=== PATIENT | male | born 1950 | race African-American/Black ===

== ENCOUNTER 2020-04-13 11:09 | Emergency (ER) | payer OTHER ==
[~2020-04-13] VITALS: Ht 175.3 cm; Wt 90.9 kg
[2020-04-13 11:23] VITALS: BP 178/114
--- NOTE | 2020-04-13 11:35 | ED.ADGEN ---
Past Medical History Past Medical History: Alcoholism, Hypertension, Seizure Past Surgical History: No Surgical History Past Surgical History None Smoking Status: Never Smoker Alcohol Use: Heavy Drug Use: None General Adult EDM: Chief Complaint: SEIZURE HPI: HPI: Patient is a 69 male who arrives via EMS after having what was reported as a seizure. The patient was observed as having seizure-like activity followed by a time of agitation/sluggish behavior. The patient states he has a history of seizures however he believes it is related to alcohol use as he is a regular c onsumer of alcohol. The patient states he does not have a history of epilepsy and is fine at this time. He denies any preceding illness. He further denies any history of pain. Additionally he denies any neurological change outside of the after mentioned seizure. He is awake, alert and nontoxic-appearing. He is resting comfortably now. The patient is very clear in his statements that he wants to be discharged very soon. Review of Systems: Review of Systems: Constitutional: Denies fever or chills. [] Eyes: Denies change in visual acuity. [] HENT: Denies nasal congestion or sore throat. [] Respiratory: Denies cough or shortness of breath. [] Cardiovascular: Denies chest pain or edema. [] GI: Denies abdominal pain, nausea, vomiting, bloody stools or diarrhea. [] : Denies dysuria. [] Musculoskeletal: Denies back pain or joint pain. [] Integument: Denies rash. [] Neurologic: Reports seizure. Denies headache, focal weakness or sensory changes. [] Endocrine: Denies polyuria or polydipsia. [] Lymphatic: Denies swollen glands. [] Psychiatric: Denies depression or anxiety. [] Allergies: Allergies: Allergies Coded Allergies Type Severity Reaction Last Updated Verified No Known Drug Allergies 04/13/20 No Physical Exam: PE: Constitutional: Well developed, well nourished, no acute distress, non-toxic appearance. [] HENT: Normocephalic, atraumatic, bilateral external ears normal, oropharynx moist, no oral exudates, nose normal. [] Eyes: PERRLA, EOMI, conjunctiva normal, no discharge. [] Neck: Normal range of motion, no tenderness, supple, no stridor. [] Cardiovascular:Heart rate regular rhythm, no murmur [] Lungs & Thorax: Bilateral breath sounds clear to auscultation [] Abdomen: Bowel sounds normal, soft, no tenderness, no masses, no pulsatile masses. [] Skin: Warm, dry, no erythema, no rash. [] Back: No tenderness, no CVA tenderness. [] Extremities: No tenderness, no cyanosis, no clubbing, ROM intact, no edema. [] Neurologic: Alert and oriented X 3, normal motor function, normal sensory function, no focal deficits noted. [] Psychologic: Affect normal, judgement normal, mood normal. [] Current Patient Data: Labs: Laboratory Tests Test 04/13/20 11:33 White Blood Count 9.7 x10^3/uL (4.0-11.0) Red Blood Count 4.93 x10^6/uL (4.30-5.70) Hemoglobin 15.1 g/dL (13.0-17.5) Hematocrit 46.2 % (39.0-53.0) Mean Corpuscular Volume 94 fL (79-100) Mean Corpuscular Hemoglobin 31 pg (25-35) Mean Corpuscular Hemoglobin Concent 33 g/dL (31-37) Red Cell Distribution Width 13.7 % (11.5-14.5) Platelet Count 190 x10^3/uL (140-400) Neutrophils (%) (Auto) 71 % (31-73) Lymphocytes (%) (Auto) 19 % (24-48) L Monocytes (%) (Auto) 8 % (0-9) Eosinophils (%) (Auto) 1 % (0-3) Basophils (%) (Auto) 1 % (0-3) Neutrophils # (Auto) 6.9 x10^3/uL (1.8-7.7) Lymphocytes # (Auto) 1.9 x10^3/uL (1.0-4.8) Monocytes # (Auto) 0.8 x10^3/uL (0.0-1.1) Eosinophils # (Auto) 0.1 x10^3/uL (0.0-0.7) Basophils # (Auto) 0.1 x10^3/uL (0.0-0.2) Sodium Level 137 mmol/L (136-145) Potassium Level 3.7 mmol/L (3.5-5.1) Chloride Level 98 mmol/L (98-107) Carbon Dioxide Level 19 mmol/L (21-32) L Anion Gap 20 (6-14) H Blood Urea Nitrogen 11 mg/dL (8-26) Creatinine 1.7 mg/dL (0.7-1.3) H Estimated GFR (Cockcroft-Gault) 48.7 BUN/Creatinine Ratio 6 (6-20) Glucose Level 128 mg/dL (70-99) H Calcium Level 9.3 mg/dL (8.5-10.1) Total Bilirubin 1.4 mg/dL (0.2-1.0) H Aspartate Amino Transferase (AST) 74 U/L (15-37) H Alanine Aminotransferase (ALT) 66 U/L (16-63) H Alkaline Phosphatase 109 U/L (46-116) Troponin I Quantitative < 0.017 ng/mL (0.000-0.055) Total Protein 8.9 g/dL (6.4-8.2) H Albumin 4.2 g/dL (3.4-5.0) Albumin/Globulin Ratio 0.9 (1.0-1.7) L Lipase 276 U/L (73-393) Ethyl Alcohol Level < 10 mg/dL (0-10) Laboratory Tests 04/13/20 11:33 Laboratory Tests 04/13/20 11:33 Vital Signs: Vital Signs Date Time Temp Pulse Resp B/P (MAP) Pulse Ox O2 Delivery O2 Flow Rate FiO2 04/13/20 11:23 99.1 107 20 178/114 (135) 99 Room Air 99.1 EKG: EKG: EKG was obtained at 1115 hrs. EKG revealed a sinus tachycardia with a ventricular rate of 103 bpm with a left axis deviation. There is some minimal T wave inversion in the lateral leads without ectopy present otherwise. [] Heart Score: HEART Score for Chest Pain: HEART Score for Chest Pain Response (Comments) Value History Slighlty/Non-Suspicious [address] Depression 2 Age > 65 2 Risk Factors 1 or 2 Risk Factors 1 Troponin < Normal Limit 0 Total 5 Risk Factors: Risk Factors: DM, Current or recent (<one month) smoker, HTN, HLP, family history of CAD, obesity. Risk Scores: Score 0 - 3: 2.5% MACE over next 6 weeks - Discharge Home Score 4 - 6: 20.3% MACE over next 6 weeks - Admit for Clinical Observation Score 7 - 10: 72.7% MACE over next 6 weeks - Early Invasive Strategies Radiology/Procedures: Radiology/Procedures: [] Impression: [facility] [address] [place] [address] IMAGING REPORT Signed PATIENT: TAURUS BUI ACCOUNT: [id number] : 1950 LOCATION: ER AGE: 69 SEX: M EXAM STATUS: REG ER ORD. PHYSICIAN: LALA CALVO DO REASON: AMS PROCEDURE: CHEST AP ONLY AP chest. HISTORY: Altered mental status AP view was taken of the chest. Lungs are clear. Heart is normal in size. There is no pleural effusion. The aorta is tortuous. IMPRESSION: 1. No acute infiltrates. Electronically signed by: Chidi Stanley MD (04/13/2020 11:55 AM) [id number] DICTATED and SIGNED BY: CHIDI STANLEY MD DATE: 04/13/20 [id number] 0 Course & Med Decision Making: Course & Med Decision Making Pertinent Labs and Imaging studies reviewed. (See chart for details) The patient remains awake, alert and has been verbally aggressive with nursing staff as well as myself. It is very likely the patient suffered a seizure. I have advised the be admitted to the hospital for further study. The patient states very clearly that he does not want this and [facility] The patient does have a history of alcoholism however there are no signs of acute intoxication and his alcohol screen is negative today. I have advised that he cease his alcohol use as this may be a contributing factor to his seizure disorder. I did offer the patient a CAT scan of his brain and he declined stating he did not need this. Despite the patient's cantankerous nature, he is able to make decisions for himself as he is neurologically intact. He will be discharged AGAINST MEDICAL ADVICE given his lack of cooperation with the further examination as well as potential admission. He is discharged AGAINST MEDICAL ADVICE. [] Dragon Disclaimer: Dragon Disclaimer: This electronic medical record was generated, in whole or in part, using a voice recognition dictation system. Departure Departure Impression: Primary Impression: Seizure Additional Impression: History of alcoholism Disposition: 07 AMA/ELOPED/LWBS Condition: GOOD Patient Instructions: Alcohol Problems, Alcohol Withdrawal, Seizure, Adult Problem Qualifiers LALA CALVO DO Apr 13, 2020 11:35
[2020-04-13 11:53] LABS: BASO # 0.1 x10^3/uL (0.0-0.2); BASO % 1 % (0-3); EOS # 0.1 x10^3/uL (0.0-0.7); EOS % 1 % (0-3); HEMATOCRIT 46.2 % (39.0-53.0); HEMOGLOBIN 15.1 g/dL (13.0-17.5); LYMPH # 1.9 x10^3/uL (1.0-4.8); LYMPH % 19 % (24-48); MEAN CORPUSCULAR HEMOGLOBIN 31 pg (25-35); MEAN CORPUSCULAR HGB CONC 33 g/dL (31-37); MEAN CORPUSCULAR VOLUME 94 fL (79-100); MONO # 0.8 x10^3/uL (0.0-1.1); MONO % 8 % (0-9); NEUT # 6.9 x10^3/uL (1.8-7.7); NEUT % 71 % (31-73); PLATELET COUNT 190 x10^3/uL (140-400); RED BLOOD COUNT 4.93 x10^6/uL (4.30-5.70); RED CELL DISTRIBUTION WIDTH 13.7 % (11.5-14.5); WHITE BLOOD COUNT 9.7 x10^3/uL (4.0-11.0)
--- NOTE | 2020-04-13 11:57 | RAD ---
AP chest. HISTORY: Altered mental status AP view was taken of the chest. Lungs are clear. Heart is normal in size. There is no pleural effusio n. The aorta is tortuous. IMPRESSION: 1. No acute infiltrates. Electronically signed by: Chidi Penn MD (04/13/2020 11:55 AM) [id number]
[2020-04-13 12:03] LABS: CALCIUM 9.3 mg/dL (8.5-10.1); CREATININE 1.7 mg/dL (0.7-1.3); GFR 48.7; POTASSIUM 3.7 mmol/L (3.5-5.1)
[2020-04-13 12:33] LABS: ALBUMIN 4.2 g/dL (3.4-5.0); ALBUMIN/GLOBULIN RATIO 0.9 (1.0-1.7); TOTAL BILIRUBIN 1.4 mg/dL (0.2-1.0); TOTAL PROTEIN 8.9 g/dL (6.4-8.2)
== END 2020-04-13 13:13 | disposition left against medical advice (07) ==
LOC: ER 11:09
DX: R56.9 Unspecified convulsions (principal); I10 Essential (primary) hypertension; F10.20 Alcohol dependence, uncomplicated; Y90.0 Blood alcohol level of less than 20 mg/100 ml
CPT/HCPCS: 36415; 71045; 80053; 83690; 84484; 85025; 93005; 99285; G0480